=== PATIENT | male | born 1940 | race Caucasian/White ===

== ENCOUNTER 2021-10-25 22:49 | Emergency (ER) | payer MEDICARE ==
[~2021-10-25] VITALS: Ht 182.9 cm; Wt 82.1 kg
[~2021-10-25 22:49] MED LIST: ASPIRIN81 MG PO; DONEPEZIL HCL10 MG PO; FLOMAX0.4 MG PO; LISINOPRIL20 MG PO; LOZOL 2.5MG2.5 MG PO; POTASSIUM99 M1; PROSCAR5 MG PO; SIMVASTATIN40 MG PO
[2021-10-25] MEDS ORDERED: LIDOCAINE JELLY 2% 10ML URO-JET TOP ONE (23:45)
[2021-10-25] MEDS ORDERED: LIDOCAINE JELLY 2% 10ML URO-JET ONE (23:47)
== END 2021-10-26 00:05 | disposition home or self-care (01) ==
LOC: ER 22:58
DX: Z46.6 Encounter for fitting and adjustment of urinary device (principal); I10 Essential (primary) hypertension; F03.90 Unspecified dementia, unspecified severity, without behavioral disturbance, psychotic disturbance, mood disturbance, and anxiety; E78.5 Hyperlipidemia, unspecified; Z95.810 Presence of automatic (implantable) cardiac defibrillator
CPT/HCPCS: 51700; 87086; 87186; 99282; 99283

== ENCOUNTER 2021-10-26 05:38 | Emergency (ER) | payer MEDICARE ==
[~2021-10-26] VITALS: Ht 182.9 cm; Wt 82.1 kg
[2021-10-26] MEDS ORDERED: LIDOCAINE JELLY 2% 10ML URO-JET TOP ONE (06:15)
[2021-10-26 07:51] VITALS: BP 153/80
== END 2021-10-26 07:10 | disposition home or self-care (01) ==
LOC: ER 05:45
DX: Z46.6 Encounter for fitting and adjustment of urinary device (principal); I10 Essential (primary) hypertension; E78.5 Hyperlipidemia, unspecified; F03.90 Unspecified dementia, unspecified severity, without behavioral disturbance, psychotic disturbance, mood disturbance, and anxiety; Z95.810 Presence of automatic (implantable) cardiac defibrillator
CPT/HCPCS: 51700; 87086; 87186; 99282